=== PATIENT | female | born 1950 | race Caucasian/White ===

== ENCOUNTER → 2024-01-12 12:59 | Outpatient (REF) | payer MEDICARE, OTHER, SELFPAY | LOC: RAD 12:59 | PROVIDERS: ATTENDING PHYSICIAN Internal Medicine Hematology & Oncology; FAMILY PHYSICIAN Physician Assistant Medical | DX: C50.911 Malignant neoplasm of unspecified site of right female breast (principal); R53.83 Other fatigue | CPT/HCPCS: 71260; Q9967 ==

== ENCOUNTER → 2024-06-29 14:24 | Outpatient (REF) | payer MEDICARE, OTHER, SELFPAY | LOC: RAD 14:24 | PROVIDERS: ATTENDING PHYSICIAN Physician Assistant Medical | DX: R22.2 Localized swelling, mass and lump, trunk (principal) | CPT/HCPCS: 76604 ==

== ENCOUNTER → 2024-07-25 13:04 | Outpatient (REF) | payer MEDICARE, OTHER, SELFPAY | LOC: WDC 13:04 | PROVIDERS: ATTENDING PHYSICIAN Internal Medicine Hematology & Oncology; FAMILY PHYSICIAN Physician Assistant Medical | DX: Z12.31 Encounter for screening mammogram for malignant neoplasm of breast (principal); Z85.3 Personal history of malignant neoplasm of breast; C50.911 Malignant neoplasm of unspecified site of right female breast | CPT/HCPCS: 77063; 77067 ==

== ENCOUNTER 2024-08-12 14:29 | Emergency (ER) | payer MEDICARE, OTHER, SELFPAY ==
[2024-08-12] VITALS (8 sets, daily range): BP systolic 117–162; BP diastolic 59–93; PULSE 59–71; BMI 23.3
[2024-08-12 15:03] LABS: % Basophils 0.7 % (0-2); % Eosinophils 0.7 % (0-6); % Immature Granulocytes 0.5 % (0-0.5); % Lymphocytes 21.7 % (20.5-51.1); % Monocytes 7.3 % (1.7-9.3); % Neutrophils 69.1 % (42.2-75.2); Absolute Basophils 0.1 10^3/uL (0-0.2); Absolute Eosinophils 0.1 10^3/uL (0-0.7); Absolute Lymphocytes 1.9 10^3/uL (1.2-3.4); Absolute Monocytes 0.6 10^3/uL (0.1-0.6); Hematocrit 38.2 % (37.0-47.0); Hemoglobin 13.2 g/dL (12.0-16.0); Mean Corp Hgb Conc. 34.6 g/dL (33.0-37.0); Mean Corpuscular Hgb 29.7 pg (27.0-31.0); Mean Corpuscular Volume 85.8 fL (81.0-99.0); Mean Platelet Volume 10.4 fL (7.4-10.4); Nucleated Red Blood Cells % 0 %; Platelet Count 280 10^3/uL (130-400); Red Blood Cell Count 4.45 10^6/uL (4.20-5.40); White Blood Cell Count 8.6 10^3/uL (4.8-10.8)
[2024-08-12 15:34] LABS: ALT (SGPT) 19 U/L (0-35); AST (SGOT) 25 U/L (14-36); Albumin 4.2 g/dl (3.5-5.0); Alkaline Phosphatase 69 U/L (38-126); Blood Urea Nitrogen 20 mg/dl (7-17); Calcium 10.5 mg/dl (8.4-10.2); Carbon Dioxide 27 mmol/L (22-30); Chloride 105 mmol/L (98-107); Estimated Creatinine Clearance 58 ml/min; Glucose 104 mg/dl (70-99); Potassium 3.7 mmol/L (3.5-5.1); Sodium 140 mmol/L (135-145); Total Bilirubin 0.8 mg/dl (0.2-1.3); Total Protein 6.5 g/dl (6.3-8.2); eGFR > 60.00
--- NOTE | 2024-08-12 15:56 | ED.GENMED ---
History of Present Illness
<Lilly Santana MD, Resident - Last Filed: 08/12/24 19:39>
General
Chief Complaint: Fainting Sensation
Source: patient
Exam Limitations: none
Time Seen by Provider: 08/12/24 15:20
Nursing documentation reviewed up to this point in time: agreed with
History of Present Illness
History of Present Illness:
74-year-old female with history of lung cancer, hypertension, breast cancer, anxiety/depression, who presented to the ED for pre-syncope. She was at a pig roast today when at 2 PM she felt hot, dehydrated, diaphoretic, lightheaded, nauseous with
palpitations and fell to her knees. She denies loss of consciousness however does not remember the details of her fall or whether she hit her head. She was told after the fact that she hit her head when she fell.
She reports headaches, urinary urgency and frequency x 1 week for which she takes Uristat. She denies chest pain, recent illness, fever, shortness of breath, weakness or new numbness/tingling.
<Francisco Villeda, DO - Last Filed: 08/12/24 17:43>
General
Source: spouse
Past History
<Lilly Santana MD, Resident - Last Filed: 08/12/24 19:39>
Past History
ED Past Medical History: Cancer (Breast CA right with lumpectomy), GERD, HTN, Hypercholesterolemia and Other (Osteoporosis, right breast cancer with radiation and tamoxifen)
ED Past Surgical History: Appendectomy, Cholecystectomy and Other (Noncontributory)
Social History
Tobacco: Smoker
Alcohol: None
Drug: None
Personal:
Living: alone
Employment: Retired
Family History
Family History: Other (Noncontributory)
Review of Systems
<Lilly Santana MD, Resident - Last Filed: 08/12/24 19:39>
Review of Systems
Allergies reviewed?: Yes
Constitutional: Denies fever
Respiratory: Denies trouble breathing
Cardiac: Denies chest pain, diaphoresis or palpitations
: Reports frequency and urgency; Denies dysuria or bleeding
Neurological: Reports headache; Denies dizzy
Phy Exam
<Lilly Santana MD, Resident - Last Filed: 08/12/24 19:39>
General Physical Exam
General Presentation: well appearing and no apparent distress
General Skin: warm and dry
General Habitus: normal
General Mental: alert
General Hydration: dry mucous membranes
ENT Exam
ENT Exam: pharynx normal
Eye Exam
Eye Exam: PERRL and EOMI
Cardiovascular Exam
Cardiovascular Exam: regular rate/rhythm, no edema, no gallop and no murmur
Pulmonary Exam
Pulmonary Exam: lungs clear, no respiratory distress, no rales, no crackles, no rhonchi and no wheezing
Gastrointestinal Exam
Gastrointestinal Exam: normal bowel sounds, non tender, soft, non distended and no cva tenderness
Neurological Exam
Neurological Exam: alert, oriented x3, no motor deficits, no sensory deficits, speech normal and cerebellum intact
NIH Stroke Score
Level of Consciousness: 0 - Alert
LOC questions: 0-Answers both correctly
LOC Commands: 0-Performs both correctly
Best Gaze: 0-Normal
Visual Mckeon: 0=Normal, no visual loss
Facial palsy: 0=Normal, symmetrical
Motor - Right Arm: 0=No drift 10 seconds
Motor - Left Arm: 0=No drift 10 seconds
Motor - Right Le-No drift 5 seconds
Motor - Left Le-No drift 5 seconds
Limb Ataxia: 0-Absent
Sensation: 0-Normal
Best Language: 0-No aphasia
Dysarthria: 0-Normal
Extinction and Inattention: 0-No abnormality
Total Score:: 0
<Francisco Villeda DO - Last Filed: 08/12/24 17:43>
NIH Stroke Score
Total Score:: 0
Course
<Lilly Santana MD, Resident - Last Filed: 08/12/24 19:39>
Orders/Labs/Results
Orders:
Orders
08/12/24 14:36
Electrocardiogram (*1) Urgent
Reason for Study: Syncope
EKG- Treatment ONCE
08/12/24 14:44
Complete Blood Count/With Diff Urgent
Comprehensive Metabolic Panel Urgent
08/12/24 16:13
Orthostatic VS- Treatment ONCE
08/12/24 16:46
Urinalysis Reflex To Culture Urgent
Date Specimen was Collected: 08/12/24
Time Specimen was Collected: 16:43
Urine Microscopic Reflex Cult Urgent
Urine Culture Urgent
YO Source: U
Specimen Description:
Date Specimen was Collected: 08/12/24
Time Specimen was Collected: 16:43
08/12/24 17:41
Fosfomycin [Monurol] 3 gm PO ONCE ONE
08/12/24 18:08
0.9% Sodium Chloride 1000 ml [Nss] 1,000 ml IV BOLUS
Abnormal Lab Results
08/12/24 08/12/24
14:44 16:46
BUN 20 H mg/dl
(7-17)
Glucose 104 H mg/dl
(70-99)
Calcium 10.5 H mg/dl
(8.4-10.2)
Urine Ketones 1+ A
(Negative)
Ur Occult Blood Reflex 2+ A
(Negative)
Urine Nitrite (Reflex) Positive A
(Negative)
Urine Bilirubin 2+ A
(Negative)
Urine Urobilinogen 2+ A
(Neg - 1+)
Leukocyte Esterase Rfl 2+ A
(Negative)
Urine WBC (Reflex) 40-50 A /HPF
(0-5)
Urine Bacteria (Reflex) Many A
(Negative)
08/12/24 14:44
08/12/24 14:44
Vital Signs
Initial and Last Documented VS:
Initial Vital Signs
Pulse Resp Pulse Ox
65 21 96
08/12/24 14:37 08/12/24 14:37 08/12/24 14:37
Last Documented Vital Signs
Temp Pulse Resp BP Pulse Ox
98 F 69 21 126/59 96
08/12/24 14:38 08/12/24 18:00 08/12/24 18:00 08/12/24 17:00 08/12/24 18:00
<Francisco Villeda, DO - Last Filed: 08/12/24 17:43>
Orders/Labs/Results
Orders:
Orders
08/12/24 14:36
Electrocardiogram (*1) Urgent
Reason for Study: Syncope
EKG- Treatment ONCE
08/12/24 14:44
Complete Blood Count/With Diff Urgent
Comprehensive Metabolic Panel Urgent
08/12/24 16:13
Orthostatic VS- Treatment ONCE
08/12/24 16:46
Urinalysis Reflex To Culture Urgent
Date Specimen was Collected: 08/12/24
Time Specimen was Collected: 16:43
Urine Microscopic Reflex Cult Urgent
Urine Culture Urgent
YO Source: U
Specimen Description:
Date Specimen was Collected: 08/12/24
Time Specimen was Collected: 16:43
08/12/24 17:41
Fosfomycin [Monurol] 3 gm PO ONCE ONE
08/12/24 18:08
0.9% Sodium Chloride 1000 ml [Nss] 1,000 ml IV BOLUS
Abnormal Lab Results
08/12/24 08/12/24
14:44 16:46
BUN 20 H mg/dl
(7-17)
Glucose 104 H mg/dl
(70-99)
Calcium 10.5 H mg/dl
(8.4-10.2)
Urine Ketones 1+ A
(Negative)
Ur Occult Blood Reflex 2+ A
(Negative)
Urine Nitrite (Reflex) Positive A
(Negative)
Urine Bilirubin 2+ A
(Negative)
Urine Urobilinogen 2+ A
(Neg - 1+)
Leukocyte Esterase Rfl 2+ A
(Negative)
Urine WBC (Reflex) 40-50 A /HPF
(0-5)
Urine Bacteria (Reflex) Many A
(Negative)
08/12/24 14:44
08/12/24 14:44
Vital Signs
Initial and Last Documented VS:
Initial Vital Signs
Pulse Resp Pulse Ox
65 21 96
08/12/24 14:37 08/12/24 14:37 08/12/24 14:37
Last Documented Vital Signs
Temp Pulse Resp BP Pulse Ox
98 F 69 21 126/59 96
08/12/24 14:38 08/12/24 18:00 08/12/24 18:00 08/12/24 17:00 08/12/24 18:00
<Lilly Santana MD, Resident - Last Filed: 08/12/24 19:39>
MDM/Problems Addressed
Differential Diagnosis Includes:
arrhythmia, seizure, heat exhaustion, anemia, orthostatic hypotension, dehydration, vasovagal reaction, medication side effect, electrolyte abnormality
MDM/Problems Addressed:
Well-appearing patient, in no acute distress. Unlikely to be seizure related as event was witnessed, no abnormal movements, tongue/cheek laceration or postictal state. Unlikely arrhythmia given unremarkable EKG, no chest pain.
Given no signs of head trauma, no neurological deficits, no need for head CT at this time.
CBC is unremarkable, chemistry with mildly elevated BUN.
Will check orthostatic vitals and get urinalysis for urinary complaints.
Update:
Urinalysis positive for UTI. Will give fosfomycin.
Will give IVF bolus. 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 Cardiology F/U
Stable to discharge to home. follow up with PCP.
<Francisco Villeda DO - Last Filed: 08/12/24 17:43>
*EKG
Interpreted by ED Provider?: Yes
Interpretation: abnormal
Rate: bradycardiac
Rhythm: sinus
[place]: normal axis
Interval: normal interval
QRS Pattern: normal QRS
Ischemia: no ischemia
*[facility] Registered Nurse Rn Interpretation
Rate: normal
Interpretation: normal
Rhythm: sinus
*Critical Care Note
Total Time (30-74mins, 75-104mins- exclusive of procedures): Not Applicable
Data Reviewed
Source: patient and spouse
<Francisco Villeda DO - Last Filed: 08/12/24 17:43>
Patient Management
Discussion with other providers: [employer] (Case discussed with Dr. LASHAWN Carreon to arrange an outpatient Holter monitor)
ED Attending Note
<Lilly Santana MD, Resident - Last Filed: 08/12/24 19:39>
-
Portions of this chart may have been created with voice recognition software.� Occasional wrong word or��sound alike� substitutions may have occurred due to the inherent limitations of voice recognition software.
<Francisco Villeda DO - Last Filed: 08/12/24 17:43>
ED Attending Note
Patient seen and examined by attending physician: Yes
I performed the substantive portion of visit, reviewed & personally made and approve the management plan that is documented in note by myself or ULYSSES.: Yes
I performed a history and physical exam of patient and discussed management with resident, I reviewed resident's note and agree with documented findings and plan of care.: Yes
ED Attending Note:
74-year-old female who presents after she was at a pig roast and working to break up the pig when she suddenly felt warm and lightheaded. She felt like she was dehydrated went to get some water and next thing he knows she was on the ground. She
states she is not sure she fully passed out but wonders if she possibly did. She denies any injuries. She recently has been dealing with some urinary symptoms as well. She denies any cardiac history but does follow cardiology just for evaluations
related to her blood pressure. Patient is noted to be on hydrochlorothiazide. Exam: Awake alert, heart regular abdomen nondistended, no respiratory distress, lungs clear. Assessment and plan: Case discussed with the patient's [employer] operations specialist who
will arrange outpatient Holter monitoring. I do feel she is safe for discharge outpatient follow-up. Question whether this could be had a vagal episode. Will treat UTI with fosfomycin. Cardiology to reach out to plan monitor
Discharge Plan
Departure
Patient Disposition: Home (Routine Discharge)
Patient with high blood pressure during this ER visit?: No
Condition: Good
Discharge Problem:
Pre-syncope, Acute UTI
Instructions: Near Fainting (DC), Urinary Tract Infection, Adult ED
Prescriptions:
No Action
anastrozole 1 MG tablet
1 mg PO DAILY
irbesartan-hydrochlorothiazide 1 EACH tablet
1 ea PO DAILY
aspirin 81 MG tablet,delayed release (DR/EC)
81 mg PO HS
escitalopram oxalate 10 MG tablet
10 mg PO DAILY
atorvastatin 20 MG tablet
20 mg PO QPM
amlodipine 5 MG tablet
5 mg PO DAILY
multivitamin 1 EACH tablet
1 tab PO DAILY
Vitamin D3 Complete Caplet Tab
25 mg PO DAILY
anastrozole 1 MG tablet
1 mg PO DAILY
acetaminophen 325 MG tablet
650 mg PO Q4HPRN PRN (Reason: temp >102 F and/or mild pain) 0RF
albuterol sulfate 1 PUFF HFA aerosol inhaler
2 puff inhalation R Q4HPRN PRN (Reason: wheezing/SOB) Qty: 1 1RF
guaifenesin [Mucus Relief ER] 600 MG tablet extended release 12hr
1,200 mg PO Q12 Qty: 60 1RF
oxycodone 5 MG tablet
5 mg PO Q6HPRN PRN (Reason: Moderate-severe pain control ) Qty: 28 0RF
Referrals:
Anant Hawkins PA-C [Family Provider] -
Tom Carreon MD [Active] -
Activity Restrictions/Additional Instructions:
Please drink plenty fluids. Cardiology will be reaching out to you to apply a Holter monitor for further monitoring of your heart. Return immediately for chest pain, shortness of breath, passing out episode, palpitations, weakness of any kind or
any other concerns. Please see cardiology or your doctor in follow-up in the next 1 week
Interventions
Interventions:
*Risk Screen - Suicide Last Done: 08/12/24 18:41
*General Assessment Last Done: 08/12/24 14:38
*Neglect/Abuse Screening Last Done: 08/12/24 14:38
ED- Fall Risk Assessment Last Done: 08/12/24 18:41
*ED COVID-19 Vaccine History Last Done: 08/12/24 18:41
*Nursing Disposition Last Done: 08/12/24 18:41
ED- Cardiac Assessment Last Done: 08/12/24 14:47
ED- Neurological Assessment Last Done: 08/12/24 14:47
Discharge Date and Time
Discharge Date/Time: 08/12/24 18:30
Print Language: [id number]
[2024-08-12 17:01] LABS: Urine Albumin Trace (Neg - Trace); Urine Bilirubin 2+ (Negative); Urine Character Very Cloudy (Clear); Urine Glucose Negative (Negative); Urine Ketone 1+ (Negative); Urine Leukocyte 2+ (Negative); Urine Nitrite Positive (Negative); Urine Occult Blood 2+ (Negative); Urine Specific Gravity 1.025 (<1.030); Urine Urobilinogen 2+ (Neg - 1+)
[2024-08-12 17:12] LABS: Urine Color Orange
[2024-08-12 17:13] LABS: Urine Bacteria Many (Negative); Urine Squamous Cell 0-2 /LPF (Few)
[2024-08-12 17:14] LABS: Urine Red Blood Cell 0-2 /HPF (0-2); Urine White Cell 40-50 /HPF (0-5)
[2024-08-12] MEDS: MONUROL 3 GM PO (17:59)
[2024-08-12] MEDS: NSS 1000 IV (18:12)
== END 2024-08-12 18:30 | disposition home or self-care (01) ==
LOC: EMR 14:29
PROVIDERS: Student in an Organized Health Care Education/Training Program; EMERGENCY PHYSICIAN Emergency Medicine; FAMILY PHYSICIAN Physician Assistant Medical
DX: R55 Syncope and collapse (principal); N39.0 Urinary tract infection, site not specified; I10 Essential (primary) hypertension; E78.00 Pure hypercholesterolemia, unspecified; K21.9 Gastro-esophageal reflux disease without esophagitis; F17.200 Nicotine dependence, unspecified, uncomplicated; Z85.3 Personal history of malignant neoplasm of breast; Z90.49 Acquired absence of other specified parts of digestive tract
CPT/HCPCS: 99284; 96360; 80053; 81003; 81015; 85025; 87077; 87086; 87186; 93005

== ENCOUNTER → 2024-11-03 12:38 | Outpatient (REF) | payer MEDICARE, OTHER, SELFPAY | LOC: RAD 12:38 | PROVIDERS: ATTENDING PHYSICIAN Internal Medicine Cardiovascular Disease; FAMILY PHYSICIAN Physician Assistant Medical | DX: E78.5 Hyperlipidemia, unspecified (principal) | CPT/HCPCS: 75571 ==

== ENCOUNTER → 2025-08-14 11:55 | Outpatient (REF) | payer MEDICARE, OTHER, SELFPAY | LOC: WDC 11:55 | PROVIDERS: ATTENDING PHYSICIAN Nurse Practitioner Family | DX: Z12.31 Encounter for screening mammogram for malignant neoplasm of breast (principal) | CPT/HCPCS: 77063; 77067 ==

== ENCOUNTER → 2025-09-18 13:17 | Outpatient (REF) | payer MEDICARE, OTHER, SELFPAY | LOC: HWRAD 13:17 | PROVIDERS: ATTENDING PHYSICIAN Internal Medicine Critical Care Medicine; FAMILY PHYSICIAN Physician Assistant Medical | DX: C34.12 Malignant neoplasm of upper lobe, left bronchus or lung (principal) | CPT/HCPCS: 71250 ==